=== PATIENT | male | born 1970 | race Caucasian/White ===

== ENCOUNTER 2023-05-05 00:10 | Day surgery (SDC) | payer OTHER, SELFPAY ==
[2023-04-29 15:27] VITALS: BMI 33.8
[2023-05-05 07:36] VITALS: BP 130/85; PULSE 66; RESP 18; TEMP 36.2; O2SAT 97
[2023-05-05] MEDS: LACTATED RINGERS 1,000 ML 150 ML IV CONT (07:52)
--- NOTE | 2023-05-05 08:14 | P.PNAN_ITS ---
Anes - Initial Pre Proc Eval Procedure: Operation Date: 05/05/23 09:00 Proposed Procedures p Esophagogastroduodenoscopy & Screening Colonoscopy - Enrico Bowens MD Date/Time: 05/05/23 08:14 Surgeon: Enrico Figueroa MD Pre Op Diagnosis: GERD, neoplasm screening Patient Data Age: 52 Gender: M Height: 1.88 m Weight: 119.5 kg Last Vital Signs Temp 36.2 C L 05/05/23 07:36 Pulse 66 05/05/23 07:36 Resp 18 05/05/23 07:36 BP 130/85 05/05/23 07:36 Pulse Ox 97 05/05/23 07:36 O2 Del Method Room Air 05/05/23 07:36 Allergies Allergy/AdvReac Type Severity Reaction Status Date / Time No Known Allergies Allergy Verified 05/05/23 07:35 Home Medications Medication Instructions Recorded Confirmed Type atorvastatin 40 mg tablet 40 mg PO HS 04/29/23 04/29/23 History duloxetine 60 mg capsule,delayed 60 mg PO DAILY 04/29/23 04/29/23 History release famotidine 20 mg tablet 20 mg PO BID 04/29/23 04/29/23 History lisinopril 20 mg tablet 20 mg PO DAILY 04/29/23 04/29/23 History naproxen 250 mg tablet 250 mg PO BID PRN Pain 04/29/23 04/29/23 History triamcinolone acetonide 0.1 % 1 applic topical BID PRN Rash 04/29/23 04/29/23 History topical cream Patient hx anesthesia problems: none Family hx anesthesia problems: none Results Review: All pre-operative results and documents have been reviewed as part of the pre- operative evaluation. [facility] Past Medical History Medical History (Updated 05/05/23 @ 08:16 by Kleber Yang MD) Chronic GERD CVA (cerebral vascular accident) HTN (hypertension) Hyperlipidemia Obesity Social History Social History Living arrangements: incarcerated Anes - Eval Final PreProcedure Day of Procedure 05/05/23 08:14 Patient weight: obese Heart: regular rate and rhythm Lungs: clear to auscultation and normal air movement Airway: Mallampati scale class II Neurological: alert and oriented Last oral intake: >/= 8 hours ASA classification: III Emergent: no Anesthetic plan: proceed Anesthesia type and monitoring: general GIVS Results Review: All pre-operative results and documents have been reviewed as part of the pre- operative evaluation. Informed Consent: The patient's anesthetic plan and its attendant risks and benefits were discussed with the patient/family/POA. Questions were solicited and answers provided to the satisfaction of the patient/family/POA.
--- NOTE | 2023-05-05 08:37 | PM.HPGS ---
History of Present Illness History of Present Illness Consent: Risks, benefits, and alternatives have been discussed and questions answered. Patient agrees to proceed with procedure. Chief complaint: GERD, neoplasm screening Narrative: Rd Farmer is a 52 year old male with gerd, used to be on omeprazole and doing well but since he is in shelter switched to famotidine and symptomatic again, never had scopes Review of Systems Constitutional: Constitutional: Denies headache(s) and Denies weakness Eyes: Eyes: Denies blurry vision ENT: Reports Normal hearing present, Denies headache(s) and Denies neck pain Cardiovascular: Cardiovascular: Denies chest pain and Denies dyspnea Respiratory: Respiratory: Denies dyspnea Gastrointestinal: Gastrointestinal: Reports no additional gastrointestinal complaints Genitourinary: Genitourinary: Denies dysuria Musculoskeletal: Musculoskeletal: Denies neck pain Integumentary/Breasts: Skin/Breast: Denies dry skin Neurologic: Reports Normal hearing present, Denies headache(s) and Denies weakness Psychiatric: Psychiatric: Denies anxiety Endocrine: Endocrine: Denies change in body appearance Hematologic/Lymphatic: Hematologic/Lymphatic: Denies easy bleeding Allergic/Immunologic: Allergic/Immunologic: Denies urticaria PMF Past Medical History Medical History (Updated 05/05/23 @ 08:38 by Enrico Figueroa MD) Chronic GERD Colon cancer screening CVA (cerebral vascular accident) HTN (hypertension) Hyperlipidemia Obesity Social History Social History Living arrangements: incarcerated Meds Home Medications and Allergies Home Medications Medication Instructions Recorded Confirmed Type atorvastatin 40 mg tablet 40 mg PO HS 04/29/23 04/29/23 History duloxetine 60 mg capsule,delayed 60 mg PO DAILY 04/29/23 04/29/23 History release famotidine 20 mg tablet 20 mg PO BID 04/29/23 04/29/23 History lisinopril 20 mg tablet 20 mg PO DAILY 04/29/23 04/29/23 History naproxen 250 mg tablet 250 mg PO BID PRN Pain 04/29/23 04/29/23 History triamcinolone acetonide 0.1 % 1 applic topical BID PRN Rash 04/29/23 04/29/23 History topical cream Allergies Allergy/AdvReac Type Severity Reaction Status Date / Time No Known Allergies Allergy Verified 05/05/23 07:35 Vital Signs Vital Signs - 24 hr 05/05/23 07:36 Temperature 97.2 F L Pulse Rate 66 Respiratory Rate 18 Blood Pressure 130/85 Pulse Oximetry 97 Oxygen Delivery Room Air Exam Const: General: comfortable and no acute distress HENMT: Face/Nose/Sinus: Normal nares present Eyes: General: appearance normal, both eyes and all related structures Neck: Neck: no JVD Resp: Auscultation: clear to auscultation bilaterally Cardio: Rate: regular rate Rhythm: regular rhythm GI: Inspection: non-distended GI Palp: Yes Soft to palpation Skin: General skin exam: normal color Neuro: General: gait normal Speech: normal speech Extrem: General: normal to inspection Psych: Mental Status: mental status grossly normal Assessment and Plan Assessment and plan (1) Chronic GERD: Code(s): K21.9 - Gastro-esophageal reflux disease without esophagitis Status: Acute Assessment and Plan: egd with bx (2) Colon cancer screening: Code(s): Z12.11 - Encounter for screening for malignant neoplasm of colon Status: Acute Assessment and Plan: colonoscopy
--- NOTE | 2023-05-05 08:49 | SUR.OPER ---
EGD start 48 end 850 Colonoscopy start 855
[2023-05-05 09:10] VITALS: BP 77/34; PULSE 58; RESP 16; O2SAT 96
[2023-05-05 09:20] VITALS: BP 96/57; PULSE 60; RESP 18; O2SAT 99
[2023-05-05 09:30] VITALS: BP 106/66; PULSE 60; RESP 20; O2SAT 100
== END 2023-05-05 09:46 | disposition home or self-care (01) ==
PROVIDERS: Visit Provider Internal Medicine Gastroenterology
PROC: 0DJ08ZZ Inspection of Upper Intestinal Tract, Via Natural or Artificial Opening Endoscopic (ICD-10-PCS; CPT 43235; principal; 2023-05-05 09:00)
DX: Z12.11 Encounter for screening for malignant neoplasm of colon (principal); K57.30 Diverticulosis of large intestine without perforation or abscess without bleeding; D12.5 Benign neoplasm of sigmoid colon; K64.8 Other hemorrhoids; K21.00 Gastro-esophageal reflux disease with esophagitis, without bleeding; I10 Essential (primary) hypertension; E78.5 Hyperlipidemia, unspecified; Z86.73 Personal history of transient ischemic attack (TIA), and cerebral infarction without residual deficits; E66.9 Obesity, unspecified; Z68.33 Body mass index [BMI] 33.0-33.9, adult
CPT/HCPCS: 45385; 43239; 88305; J2704; J7120